=== PATIENT | female | born 1960 | race Caucasian/White ===

== ENCOUNTER 2018-11-27 17:07 | Emergency (ER) | payer SELFPAY ==
[~2018-11-27] VITALS: Ht 160 cm; Wt 90.9 kg
[2018-11-27] MEDS ORDERED: AMOX TR/POT CLAV 875 MG/125 MG TABLET PO ONE (20:00)
[2018-11-27 21:09] VITALS: BP 149/88
== END 2018-11-27 21:56 | disposition home or self-care (01) ==
LOC: EMS 17:08
DX: K02.9 Dental caries, unspecified (principal)
CPT/HCPCS: 99406